=== PATIENT | female | born 1940 | race Caucasian/White ===

== ENCOUNTER → 2016-12-01 | Outpatient (CLI) | payer MEDICARE ==
[~2016-12-01] MED LIST: ACET325T9 PO; AMLO5TAB2 PO; ASPI-482 PO; ASPI1TAB30 PO; BENA40TA15 PO; BUPR150T11 PO; CA/D1TAB PO; CARV25TA PO; CELE200C PO; CHOL100013 PO; CRAN500C6 PO; DIAZ5TAB4 PO; FLUO10CA13 PO; FURO-69 PO; GLUC1CAP48 PO; HYDR-963 PO; HYDR50TA6 PO; IBUP200T58 PO; IOHEXOL 180 MG/ML 10 ML VIAL. ONE; MAGN400C PO; MECL25TA3 PO; MULT-658 PO; OMEG-33 PO; POTA500T5 PO; TIZA4TAB PO; UBID100C26 PO; [UNRECOGNIZED DRUG - CODE] PO; methylPREDNISolone ACETATE 40 MG/ML VIAL. ONE; methylPREDNISolone ACETATE 80 MG/ML VIAL. ONE
--- NOTE | 2016-12-02 03:04 | PAIN ---
DATE OF SERVICE: 12/01/2016 PROGRESS NOTE FOR PAIN CLINIC DIAGNOSES: 1. Cervical radiculopathy with cervical spondylosis and cervicalgia. 2. Degenerative disk disease, lumbar spine with low back pain. HISTORY OF PRESENT ILLNESS: The patient is a 76-year-old female who returns for followup status post medication management as well as cervical epidural steroid injections, last seen on 07/03/2016. The patient reports she did fairly well about 50% at least improvement, perhaps more in the base of the neck, shoulder and right upper extremity. The patient and her daughter, Jessica, who accompanies her today, report that she has not been active at all. She has basically been lying in bed or sitting on a chair or couch at home, refusing to do any physical therapy. She has had physical therapy, home therapy done several times in the past; however, she would not participate with it and the therapist gets frustrated and give up. The patient reports that she feels weak. Her right shoulder is hurting. Her right upper extremity is hurting. She is also depressed that she had her teeth removed recently and is having dentures fitted. She reports that the pain is mainly in the base of the neck and right shoulder, right upper extremity radiating to the arm and anterior aspect of the forearm as well as the upper arm. The patient reports it is cramping, stabbing, constant, radiating and severe, rating as a 9 on a scale of 10 at its worst. It is currently 7 on a scale of 10 today. The patient reports it wakes her from sleep at night. She is unable to sleep on her right side because of the shoulder and arm pain. Orthopedics have recommended shoulder replacement though she is not certain if she wants to do this at this time. The patient reports she did well after the last injection, again that was back in 07/03/2016, returns today for medication refill. She has been taking hydrocodone. We discussed this, as she is having some significant sedation with this as well and we will make some considerations and some changes as well. PHYSICAL EXAMINATION: VITAL SIGNS: Today, the patient's blood pressure 124/81, pulse is 61, respirations 18, temperature is 98.3 degrees Fahrenheit and weight is 134 pounds. GENERAL: The patient is awake, alert, oriented, appropriate, very pleasant demeanor. HEENT: Head shows normocephalic, atraumatic. Extraocular movements are intact and symmetrical. Oral cavity shows mucous membranes moist and pink. Dentition is intact. NECK: Shows anterior throat supple without palpable lymphadenopathy noted. Swallow reflex is symmetrical. CHEST: Shows normal on inspection. Breath sounds are clear to auscultation bilaterally. HEART: Shows S1 and S2 clear. ABDOMEN: Soft, nontender, nondistended. No palpable organomegaly. No rebound or guarding demonstrated. BACK: Shows spine grossly in the midline. Cervical paraspinous musculature is very firm, very tender with palpation bilaterally with tenderness in the superior trapezius bilaterally as well. EXTREMITIES: Upper extremities show deep tendon reflexes at 1+ in the biceps and triceps tendons. Motor exam is approximately 4 on a scale of 5 with right data entry manager strength and 5/5 on the left, bicep and tricep flexion is about 3/5 on the right and 5/5 on the left. Options were discussed with the patient and the patient's daughter. We will proceed with cervical epidural steroid injection, states first in this series. Risks were again discussed including, but not limited to, bleeding, infection, possibility of epidural hematoma and subsequent neurologic compromise, dural puncture, headaches, spinal cord and/or nerve damage, side effects of steroid medication and poor results regarding pain control. The patient understands and wishes to proceed. The patient will return to clinic in approximately 2 weeks for followup. She was given refill prescription for hydrocodone as well as gabapentin and meloxicam with instructions, side effects to be aware of. Also we will try tramadol, as this may be less sedating for the patient and we discussed this with she and her daughter extensively, potential side effects and medication regimen ____ for the pain control, we will change this to the hydrocodone. She was given both prescriptions today to try the tramadol first and if it is not effective, then to go back to the hydrocodone. The patient and her daughter understand and will follow up in approximately 4 weeks or as necessary sooner. DIAGNOSES: Cervical radiculopathy with cervical spondylosis and cervicalgia. PROCEDURE: Cervical epidural steroid injection in translaminar approach to the C6-C7 level using C-arm fluoroscopic guidance under sterile prep and drape using local anesthetic. MEDICATION INJECTED: 120 mg of Depo-Medrol plus 5 mL preservative-free normal saline and 2 mL Isovue for contrast. CONDITION AT DISCHARGE: Stable. The patient tolerated procedure well, had no complications. MERLIN ROSEN MD DR: GAGE/otis JOB#: [id number] / [id number]
== END | disposition home or self-care (01) ==
LOC: PNCL 10:15
PROVIDERS: ATTEND Anesthesiology
DX: M47.22 Other spondylosis with radiculopathy, cervical region (principal); M51.36 Other intervertebral disc degeneration, lumbar region; Z09 Encounter for follow-up examination after completed treatment for conditions other than malignant neoplasm; Z88.1 Allergy status to other antibiotic agents; Z88.5 Allergy status to narcotic agent; Z88.0 Allergy status to penicillin; Z88.2 Allergy status to sulfonamides; Z88.7 Allergy status to serum and vaccine; Z88.8 Allergy status to other drugs, medicaments and biological substances
CPT/HCPCS: 62321; J1030; J1040

== ENCOUNTER → 2017-08-12 | Outpatient (CLI) | payer MEDICARE ==
[~2017-08-12] MED LIST changes: -ACET325T9 PO; -AMLO5TAB2 PO; -ASPI-482 PO; -ASPI1TAB30 PO; -BENA40TA15 PO; -BUPR150T11 PO; -CA/D1TAB PO; -CARV25TA PO; -CELE200C PO; -CHOL100013 PO; -CRAN500C6 PO; -DIAZ5TAB4 PO; -FLUO10CA13 PO; -FURO-69 PO; -GLUC1CAP48 PO; -HYDR-963 PO; -HYDR50TA6 PO; -IBUP200T58 PO; +IOHEXOL 180 MG/ML 10 ML VIAL.; -IOHEXOL 180 MG/ML 10 ML VIAL. ONE; -MAGN400C PO; -MECL25TA3 PO; -MULT-658 PO; -OMEG-33 PO; -POTA500T5 PO; -TIZA4TAB PO; -UBID100C26 PO; -[UNRECOGNIZED DRUG - CODE] PO; +methylPREDNISolone ACETATE 40 MG/ML VIAL.; -methylPREDNISolone ACETATE 40 MG/ML VIAL. ONE; +methylPREDNISolone ACETATE 80 MG/ML VIAL.; -methylPREDNISolone ACETATE 80 MG/ML VIAL. ONE
== END | disposition home or self-care (01) ==
LOC: PNCL 11:37
DX: M47.22 Other spondylosis with radiculopathy, cervical region (principal); M51.16 Intervertebral disc disorders with radiculopathy, lumbar region; Z88.0 Allergy status to penicillin; Z88.2 Allergy status to sulfonamides; Z88.7 Allergy status to serum and vaccine; Z88.8 Allergy status to other drugs, medicaments and biological substances
CPT/HCPCS: 62321; J1030; J1040; Q9965

== ENCOUNTER → 2018-04-05 | Outpatient (CLI) | payer MEDICARE ==
[~2018-04-05] MED LIST changes: +ACET325T9 PO; +AMLO5TAB7 PO; +ASPI-482 PO; +ASPI1TAB31 PO; +BENA40TA15 PO; +BUPR150T11 PO; +CA/D1TAB PO; +CARV25TA PO; +CELE200C PO; +CHOL100013 PO; +CRAN500C6 PO; +DIAZ5TAB4 PO; +DONE5TAB56 PO; +DULO20CA PO; +FLUO10CA13 PO; +FURO-69 PO; +GABA-585 PO; +GLUC1CAP48 PO; +HYDR-963 PO; +HYDR50TA6 PO; +IBUP200T58 PO; -IOHEXOL 180 MG/ML 10 ML VIAL.; +MAGN400C PO; +MECL25TA3 PO; +MELO15TA23 PO; +MULT-658 PO; +OMEG-33 PO; +POTA500T5 PO; +TIZA4TAB PO; +UBID100C26 PO; +[UNRECOGNIZED DRUG - CODE] PO; -methylPREDNISolone ACETATE 40 MG/ML VIAL.; -methylPREDNISolone ACETATE 80 MG/ML VIAL.
--- NOTE | 2018-04-05 23:27 | PAIN ---
DATE OF SERVICE: 04/05/2018 DIAGNOSES: 1. Cervical radiculopathy with cervical spondylosis and cervicalgia. 2. Lumbar degenerative disk disease with low back pain. HISTORY OF PRESENT ILLNESS: The patient is a 77-year-old female who returns for followup status post medication management as well as cervical epidural steroid injections, last seen 08/12/2017. The patient did fairly well, but the pain only was better for about 2 weeks and then returned to its baseline in the neck and left upper extremity. The patient reports that she has been feeling ill lately. She did have UTI, which has just been treated, but does not feel like trying any other interventional techniques at this time. She has been taking hydrocodone in lower amounts than what was prescribed. We prescribed enough for her to take 8 tablets a day. She has only been taking about 6 on average and lately they have become very expensive according to her daughter through her insurance provider, so they have been breaking them in half and taking less that way, although she is in more pain and they are making those lasts longer because of the budgetary issues. The patient reports the pain is in the base of the neck, shoulders bilaterally, worse on the left than the right in the mid back, upper back as well as the low back and into the hips and also some knee pain bilaterally. The patient reports though with hydrocodone it is about 75-80% improved and without any significant side effects. It does cause some increased drowsiness, but that is all. The patient reports her pain on average is an 8-9, it is 9 at its worse, and 8 on average, is 8 today. The patient reports it can be sharp, radiating, constant, severe, dull, aching, shooting, burning, cramping, etc. The patient reports that it does not awaken her from sleep. Generally, she sleeps about 8 hours at a time, takes gabapentin in the evening as well before bedtime with a pain pill and this helps her sleep through the night. The patient reports no new motor or sensory deficits, no new bowel or bladder incontinence or other complaints. No significant side effects with the medication. The patient had appropriate K-TRACS reporting as well as appropriate urinalysis to date as well. PHYSICAL EXAMINATION: VITAL SIGNS: The patient's blood pressure is 136/96, pulse 61, respirations are 18, temperature 98.2 degrees Fahrenheit, height is 5 feet 3 inches, weight 150 pounds. GENERAL: The patient is awake, alert, oriented, appropriate, very pleasant demeanor. HEENT: Head is normocephalic, atraumatic. Extraocular movements are intact, symmetrical. Oral cavity: Mucous membranes moist and pink. Dentition is intact. NECK: Shows anterior throat supple without palpable lymphadenopathy noted. Swallow reflex symmetrical. CHEST: Shows normal on inspection. Breath sounds are clear to auscultation bilaterally. HEART: Shows S1, S2 clear. No murmurs auscultated. ABDOMEN: Soft, obese, nontender, nondistended. No palpable organomegaly is noted. No rebound or guarding demonstrated. BACK: Shows spine grossly in the midline. Slight exaggeration of thoracic kyphosis and normal-appearing cervical lordotic curvature and flattening of lumbar lordotic curvature. Paraspinous muscle shows symmetrical, but with palpation shows tenderness throughout the cervical, thoracic and lumbar distributions, again no specific asymmetry. No specific trigger points. Rotational motion of cervical spine is maintained with right and left lateral rotation greater than 45 degrees with some guarding with extension, but not with forward flexion. Some minor pain reported in the base of the shoulders, again worse on the left than the right with extension of the left and the patient's upper extremities show deep tendon reflexes at 1+ in the biceps and triceps tendons. Motor exam is approximately 3-4 on a scale of 5 with color separation photographer strength, but is symmetrical. Lower extremities show deep tendon reflexes 1+ in the patellar tendons and tendo calcaneus tendons. Motor exam is about 3-4/5 as well bilaterally with dorsiflexion and extension. Peripheral pulses are 2+ radial distribution and 1+ posterior tibia. No peripheral edema is noted. Options were discussed with the patient. The patient's old chart was reviewed as her current medication regimen updated. Current review of systems updated today as well. We will refill the patient's medication with the lower monthly amount of the hydrocodone 180 as opposed to 240. Also, we will refill the patient's meloxicam and the patient's gabapentin. The patient was given instruction as well as side effects to be aware of each of the medications. Once again, she has had appropriate K-TRACS reporting as well as appropriate urinalysis to date. Her daughter, Jessica, who accompanies her to visit is also her cyberathlete at home and maintains the medication regimens for her very strictly. We reinforced this with controlled substances especially and will give her 90-day supply. The patient was given instruction as well as side effects to be aware of each of the medications and will follow up as scheduled or sooner if necessary. MERLIN ROSEN MD DR: GAGE/otis JOB#: [id number] / [id number]
== END | disposition home or self-care (01) ==
LOC: PNCL 11:41
PROVIDERS: ATTEND Anesthesiology
DX: M54.12 Radiculopathy, cervical region (principal); M47.892 Other spondylosis, cervical region; M51.36 Other intervertebral disc degeneration, lumbar region
CPT/HCPCS: G0463